=== PATIENT | female | born 1985 | race American Indian/Alaskan Native ===

== ENCOUNTER 2016-05-29 17:16 | Emergency (ER) | payer BC ==
--- NOTE | 2016-05-29 19:28 | Emergency Department Report ---
HPI - General Chief Complaint: Dental/Oral Time Seen by Provider: 05/29/16 19:22 - HPI HPI: The patient is a 31-year-old female who presents to ED complaining of 8/10pain in the left side of his mouth x today . Patient states that the pain started today while at work and has increased in severity over the past 10 hours. The pain is exacerbated by eating and opening of the mouth. Patient states the pain is alleviated initially with pain medication but comes back. Patient states that it radiates towards left ear. Patient describes a as a throbbing, pressure-like sensation. Patient states otherwise well and has no other complaints. Patient has had no fevers and no chills. No chest pain, no shortness of breath. No abdominal pain. No shortness of breath or recent trauma to the face. ED Past Medical Hx - Past Medical History Hx Asthma: Yes - Surgical History Additional Surgical History: 2000 - Social History Smoking Status: Current Every Day Smoker Substance Use Type: None - Medications Home Medications: Home Medications Medication Instructions Recorded Confirmed Last Taken Type metroNIDAZOLE [Flagyl] 500 mg PO Q12H #14 tablet 03/05/14 Unknown Rx Ibuprofen [Motrin 800 MG tab] 800 mg PO Q8H PRN #30 tablet 05/29/16 Unknown Rx Penicillin Vk [Veetids TAB] 250 mg PO QID #28 tablet 05/29/16 Unknown Rx ED Review of Systems ROS: Stated complaint: SEVERE TOOTHACHE/RT LEG PAIN Other details as noted in HPI Constitutional: denies: chills, fever Eyes: denies: eye pain, eye discharge, vision change ENT: dental pain. denies: ear pain, throat pain, hearing loss, epistaxis Respiratory: denies: cough, shortness of breath, wheezing Cardiovascular: denies: chest pain, palpitations Endocrine: no symptoms reported Gastrointestinal: denies: abdominal pain, nausea, diarrhea Genitourinary: denies: urgency, dysuria, discharge Musculoskeletal: denies: back pain, joint swelling, arthralgia Skin: denies: rash, lesions Neurological: denies: headache, weakness, paresthesias Psychiatric: denies: anxiety, depression Hematological/Lymphatic: denies: easy bleeding, easy bruising Physical Exam - Physical Exam Vital Signs: Vital Signs 05/29/16 17:28 Temperature 99.5 F Pulse Rate 94 H Respiratory 18 Rate Blood Pressure 139/74 O2 Sat by Pulse 100 Oximetry Physical Exam: GENERAL: Alert and oriented x3, no apparent distress, Normal Gait, atraumatic. HEAD: Head is normocephalic and a-traumatic. EYES: Extra ocular muscles are intact. Pupils are equal, round, and reactive to light and accommodation. EARS: symetrical, atraumatic, non tender, ear canal clear and moderate cerumen, tympanic membrance non inflamed. gross auditory nml bilaterally. NOSE: Nose symetrical, Nontender,Nares appeared normal. MOUTH:Mouth is well hydrated and without lesions. Tonsils nonerythematous or swollen, Uvula midline, Tongue not elevated. Mucous membranes are moist. Posterior pharynx clear, no exudate or lesions. Patent airways. Right lower jaw Tender to palpation. No fractured or missing tooth. NECK: Supple. Non edematous, No carotid bruits. No lymphadenopathy or thyromegaly. LUNGS: Symetrical with respiration, No wheezing, no rales or crackles, CTAB. HEART: S1, S2 present, regular rate and rhythm without murmur, no rubs, no gallops. ABDOMEN: No organomegaly was noted,Positive bowel sounds, soft, and non- distended. . Nontender to palpation on all Quadrants, NO CVA tenderness. EXTREMITIES/MUSCULOSKELETAL: No cyanosis, clubbing, rash, lesions or edema. Full ROM bilaterally. NEUROLOGIC: No focal Deficit, Cranial nerves II through XII are grossly intact. No loss of sensation, SKIN: Warm and dry, No lesions, No ulceration or induration present. ED Course Vital Signs 05/29/16 17:28 Temperature 99.5 F Pulse Rate 94 H Respiratory 18 Rate Blood Pressure 139/74 O2 Sat by Pulse 100 Oximetry ED Medical Decision Making - Medical Decision Making 31 female presents with dental pain secondary to caries. ED course: Patient received 500 mg of penicillin and and 800 milligrams of Motrin. Vital signs stable. Patient is in no acute or respiratory distress. Discussed the patient follow up with the dentist. Referrals given and told to follow-up. Discharged patient on antibiotics and Motrin for pain. Patient verbally states she understands and will follow up with a dentist. As well as take medications as prescribed. Critical care attestation.: If time is entered above; I have spent that time in minutes in the direct care of this critically ill patient, excluding procedure time. ED Disposition Clinical Impression: Dental caries, Pain due to dental caries Disposition: DISCHARGED TO HOME OR SELFCARE Is pt being admited?: No Does the pt Need Aspirin: No Condition: Stable Instructions: Dental Caries (ED), Toothache (ED) Prescriptions: Ibuprofen [Motrin 800 MG tab] 800 mg PO Q8H PRN #30 tablet PRN Reason: Pain Penicillin Vk [Veetids TAB] 250 mg PO QID #28 tablet Referrals: PRIMARY CARE, [Primary Care Provider] - 3-[address] [facility] [Outside] - 3-5 Days [facility] [Outside] - 3-5 Days [facility] [Outside] - 3-5 Days [facility] [Outside] - 3-5 Days [facility] [Outside] - 3-5 Days [facility] [Outside] - 3-5 Days Forms: Work/School Release Form(ED) Time of Disposition: 20:07
[2016-05-29] MEDS ORDERED: MOTRIN PO ONE (19:45)
[2016-05-29 20:18] VITALS: BP 136/76
== END 2016-05-29 20:16 | disposition home or self-care (01) ==
LOC: ED 17:16
DX: K02.9 Dental caries, unspecified (principal); J45.909 Unspecified asthma, uncomplicated; F17.200 Nicotine dependence, unspecified, uncomplicated; Z88.5 Allergy status to narcotic agent
CPT/HCPCS: 99282

== ENCOUNTER 2017-01-15 22:25 | Emergency (ER) | payer SELFPAY ==
[2017-01-15 22:50] VITALS: BP 122/68
[2017-01-15 23:09] LABS: Eosinophils % (Auto) 1.5 % (0.0-4.3); Hematocrit 31.9 % (30.3-42.9); Mean Corpuscular HGB Conc 31 % (30-34); Platelet Count 320 K/mm3 (140-440); Red Blood Count 5.14 M/mm3 (3.65-5.03); Red Cell Distribution Width 17.4 % (13.2-15.2); White Blood Count 10.9 K/mm3 (4.5-11.0)
[2017-01-15 23:10] LABS: Mean Corpuscular Hemoglobin 19 pg (28-32); Mean Corpuscular Volume 62 fl (79-97)
[2017-01-15 23:31] LABS: Alanine Aminotransferase 29 units/L (7-56); Albumin 3.8 g/dL (3.9-5); Alkaline Phosphatase 126 units/L (35-129); Anion Gap 16 mmol/L; BUN/Creatinine Ratio 13; Blood Urea Nitrogen 9 mg/dL (7-17); Calcium 8.8 mg/dL (8.4-10.2); Carbon Dioxide 22 mmol/L (22-30); Chloride 103.9 mmol/L (98-107); Glucose 87 mg/dL (65-100); Lipase 15 units/L (13-60); Potassium 3.9 mmol/L (3.6-5.0); Sodium 138 mmol/L (137-145); Total Protein 7.7 g/dL (6.3-8.2)
== END 2017-01-16 01:05 | disposition left against medical advice (07) ==
LOC: ED 22:25
DX: R10.30 Lower abdominal pain, unspecified (principal); Z53.21 Procedure and treatment not carried out due to patient leaving prior to being seen by health care provider
CPT/HCPCS: 36415; 80053; 83690; 84703; 85025

== ENCOUNTER 2019-01-05 17:55 | Emergency (ER) | payer SELFPAY ==
[2019-01-05 18:10] VITALS: BP 121/68
--- NOTE | 2019-01-05 18:12 | Emergency Department Report ---
ED N/V/D HPI - General Chief complaint: Abdominal Pain Stated complaint: STOMACH PAIN Source: patient Mode of arrival: Ambulatory Limitations: No Limitations - History of Present Illness Initial comments: 33yo female states that she has nausea and diarrhea after eating take out last night. She states that her abdominal pain is at the bottom of her abdomen. -: Last night Description of Diarrhea: water - Related Data Previous Rx's Medication Instructions Recorded Last Taken Type metroNIDAZOLE [Flagyl] 500 mg PO Q12HR #14 tab 01/31/17 Unknown Rx Allergies Allergy/AdvReac Type Severity Reaction Status Date / Time codeine Allergy Hives Verified 01/05/19 18:08 ED Review of Systems ROS: Stated complaint: STOMACH PAIN Other details as noted in HPI ED Past Medical Hx - Past Medical History Hx Asthma: Yes Additional medical history: PID - Surgical History Past Surgical History?: No Additional Surgical History: 2000 - Social History Smoking Status: Current Every Day Smoker - Medications Home Medications: Home Medications Medication Instructions Recorded Confirmed Last Taken Type metroNIDAZOLE [Flagyl] 500 mg PO Q12HR #14 tab 01/31/17 Unknown Rx ED Physical Exam - General Limitations: No Limitations Critical care attestation.: If time is entered above; I have spent that time in minutes in the direct care of this critically ill patient, excluding procedure time. ED Disposition Condition: Stable Instructions: Abdominal Pain (ED)
[2019-01-05] MEDS ORDERED: DICYCLOMINE 20 MG TAB PO ONE (19:45)
[2019-01-05] MEDS ORDERED: ONDANSETRON 4 MG ODT TAB PO ONE (19:45)
[2019-01-05] MEDS ORDERED: DIPHENOXYLATE/ATROPINE TAB PO ONE (19:45)
[2019-01-05] MEDS ORDERED: FAMOTIDINE 20 MG TAB PO ONE (19:45)
[2019-01-05 19:52] LABS: Bilirubin,Urine NEG (Negative); Blood,Urine MOD (Negative); Color,Urine Yellow (Yellow); Mucus,Urine 1+ /HPF; Protein,Urine <15 mg/dL mg/dL (Negative); Urobilinogen,Urine < 2.0 mg/dL (<2.0)
[2019-01-05 20:09] LABS: Basophils % (Auto) 0.4 % (0.0-1.8); Eosinophils # (Auto) 0.1 K/mm3 (0.0-0.4); Eosinophils % (Auto) 1.1 % (0.0-4.3); Hematocrit 31.8 % (30.3-42.9); Hemoglobin 10.1 gm/dl (10.1-14.3); Lymphocytes # (Auto) 2.2 K/mm3 (1.2-5.4); Mean Corpuscular HGB Conc 32 % (30-34); Monocytes # (Auto) 0.5 K/mm3 (0.0-0.8); Monocytes % (Auto) 5.2 % (0.0-7.3); Platelet Count 274 K/mm3 (140-440); Red Blood Count 5.14 M/mm3 (3.65-5.03); Red Cell Distribution Width 16.7 % (13.2-15.2)
[2019-01-05 20:10] LABS: Mean Corpuscular Volume 62 fl (79-97)
--- NOTE | 2019-01-05 20:58 | Emergency Department Report ---
ED N/V/D HPI - General Chief complaint: Abdominal Pain Stated complaint: STOMACH PAIN Source: patient Mode of arrival: Ambulatory Limitations: No Limitations - History of Present Illness Initial comments: Patient is a 33-year-old -[place] female with no past medical history who presents to the ED with complaint of acute onset persistent intermittent nausea, vomiting, diarrhea and mild diffuse abdominal pain for the last 12 hours after eating [place] food 24 hours ago. Patient denies dizziness, chest pain, shortness of breath, fever, chills, sore throat, cough, dysuria, urinary frequency and urgency or headache. Patient states that is not in so home with similar symptoms. MD complaint: nausea, vomiting, diarrhea, abdominal pain -: Sudden, hour(s) Description of Vomiting: food contents, watery Description of Diarrhea: water Associated Abdominal Pain: Yes (mildly diffuse) Location: diffuse Radiation: none Severity: mild Pain Scale: 2 Quality: aching, dull Consistency: intermittent Improves with: none Worsens with: none Context: possible food poisoning Associated Symptoms: denies other symptoms, loss of appetite, nausea/vomiting. denies: myalgias, chest pain, cough, diaphoresis, fever/chills, headaches, malaise, rash, dysuria, shortness of breath, syncope, weakness - Related Data Previous Rx's Medication Instructions Recorded Last Taken Type metroNIDAZOLE [Flagyl] 500 mg PO Q12HR #14 tab 01/31/17 Unknown Rx Dicyclomine [Bentyl] 20 mg PO Q6H PRN #20 tablet 01/05/19 Unknown Rx Diphenoxylate/Atropine [Lomotil] 1 - 2 tab PO Q4H PRN #12 tablet 01/05/19 Unknown Rx Ondansetron [Zofran Odt] 4 mg PO Q6HR PRN #15 tab.rapdis 01/05/19 Unknown Rx raNITIdine HCl [Zantac] 150 mg PO Q12H #24 tablet 01/05/19 Unknown Rx Allergies Allergy/AdvReac Type Severity Reaction Status Date / Time codeine Allergy Hives Verified 01/05/19 18:08 ED Review of Systems ROS: Stated complaint: STOMACH PAIN Other details as noted in HPI Constitutional: denies: chills, fever Eyes: denies: eye pain, eye discharge, vision change ENT: denies: ear pain, throat pain Respiratory: denies: cough, shortness of breath, wheezing Cardiovascular: denies: chest pain, palpitations Endocrine: no symptoms reported Gastrointestinal: abdominal pain, nausea, vomiting, diarrhea Genitourinary: denies: urgency, dysuria, discharge Musculoskeletal: denies: back pain, joint swelling, arthralgia Skin: denies: rash, lesions Neurological: denies: headache, weakness, paresthesias Psychiatric: denies: anxiety, depression Hematological/Lymphatic: denies: easy bleeding, easy bruising ED Past Medical Hx - Past Medical History Hx Asthma: Yes Additional medical history: PID - Surgical History Past Surgical History?: No Additional Surgical History: 2000 - Social History Smoking Status: Current Every Day Smoker - Medications Home Medications: Home Medications Medication Instructions Recorded Confirmed Last Taken Type metroNIDAZOLE [Flagyl] 500 mg PO Q12HR #14 tab 01/31/17 Unknown Rx Dicyclomine [Bentyl] 20 mg PO Q6H PRN #20 tablet 01/05/19 Unknown Rx Diphenoxylate/Atropine [Lomotil] 1 - 2 tab PO Q4H PRN #12 tablet 01/05/19 Unknown Rx Ondansetron [Zofran Odt] 4 mg PO Q6HR PRN #15 tab.rapdis 01/05/19 Unknown Rx raNITIdine HCl [Zantac] 150 mg PO Q12H #24 tablet 01/05/19 Unknown Rx ED Physical Exam - General Limitations: No Limitations General appearance: alert, in no apparent distress - Head Head exam: Present: atraumatic, normocephalic, normal inspection - Eye Eye exam: Present: normal appearance, PERRL, EOMI Pupils: Present: normal accommodation - ENT ENT exam: Present: normal exam, normal orophraynx, mucous membranes moist, TM's normal bilaterally, normal external ear exam - Neck Neck exam: Present: normal inspection, full ROM - Respiratory Respiratory exam: Present: normal lung sounds bilaterally. Absent: respiratory distress, wheezes, rales, stridor, chest wall tenderness, decreased breath sounds, prolonged expiratory - Cardiovascular Cardiovascular Exam: Present: regular rate, normal rhythm, normal heart sounds. Absent: systolic murmur, diastolic murmur, rubs, gallop - GI/Abdominal GI/Abdominal exam: Present: soft, normal bowel sounds. Absent: tenderness, guarding, rebound - Extremities Exam Extremities exam: Present: normal inspection, full ROM, normal capillary refill - Back Exam Back exam: Present: normal inspection, full ROM. Absent: CVA tenderness (L), muscle spasm, paraspinal tenderness, vertebral tenderness - Neurological Exam Neurological exam: Present: alert, oriented X3, CN II-XII intact, normal gait, reflexes normal - Psychiatric Psychiatric exam: Present: normal affect, normal mood - Skin Skin exam: Present: warm, dry, intact, normal color. Absent: rash ED Course Vital Signs 01/05/19 18:08 Temperature 98.6 F Pulse Rate 96 H Respiratory 18 Rate Blood Pressure 121/68 [Right] O2 Sat by Pulse 100 Oximetry - Reevaluation(s) Reevaluation #1: 01/05/19 21:06 This is a 33-year-old female who presented to the ED with nausea, vomiting, diarrhea and while diffuse abdominal pain after eating at a restaurant. In the ED, patient is alert and oriented 3 and is not in distress with normal vital signs. Patient has not had any nausea or vomiting episodes the last 3 hours but has had 2 episodes of diarrhea. Lab test results were reviewed and are nonactionable. Patient was treated in the ED for nausea, vomiting and diarrhea in the ED. Patient was discharged home on medications and advised to follow-up with her primary care physician in 5-7 days for reevaluation. Patient was advised to maintain a clear liquid diet for 12-24 hours, and to return to the ED immediately if symptoms get worse. ED Medical Decision Making - Lab Data Result diagrams: 01/05/19 19:20 - Medical Decision Making This is a 33-year-old female who presented to the ED with nausea, vomiting, diarrhea and while diffuse abdominal pain after eating at a restaurant. In the ED, patient is alert and oriented 3 and is not in distress with normal vital signs. Patient has not had any nausea or vomiting episodes the last 3 hours but has had 2 episodes of diarrhea. Lab test results were reviewed and are nonactionable. Patient was treated in the ED for nausea, vomiting and diarrhea in the ED. Patient was discharged home on medications and advised to follow-up with her primary care physician in 5-7 days for reevaluation. Patient was advised to maintain a clear liquid diet for 12-24 hours, and to return to the ED immediately if symptoms get worse. - Differential Diagnosis Viral gastroenteritis; nausea, vomiting, diarrhea and abdominal pain Critical care attestation.: If time is entered above; I have spent that time in minutes in the direct care of this critically ill patient, excluding procedure time. ED Disposition Clinical Impression: Nausea, vomiting and diarrhea, Viral gastroenteritis Disposition: TO HOME OR SELFCARE Is pt being admited?: No Does the pt Need Aspirin: No Condition: Stable Instructions: Acute Nausea and Vomiting (ED), Acute Diarrhea (ED), Abdominal Pain (ED) Additional Instructions: Maintain a clear liquid diet for 12-24 hours, take medications, drink plenty of fluids and follow-up with your primary care physician in 5-7 days for reevaluation or return to the ED immediately if symptoms get worse. Prescriptions: Dicyclomine [Bentyl] 20 mg PO Q6H PRN #20 tablet PRN Reason: Pain , Severe (7-10) Diphenoxylate/Atropine [Lomotil] 1 - 2 tab PO Q4H PRN #12 tablet PRN Reason: Diarrhea raNITIdine HCl [Zantac] 150 mg PO Q12H #24 tablet Ondansetron [Zofran Odt] 4 mg PO Q6HR PRN #15 tab.rapdis PRN Reason: Nausea Referrals: PRIMARY CARE,MD [Primary Care Provider] - 3-5 Days Time of Disposition: 20:56 Print Language: UPPER SORBIAN
[2019-01-05 21:10] LABS: Alanine Aminotransferase 13 units/L (7-56); BUN/Creatinine Ratio 9; Blood Urea Nitrogen 6 mg/dL (7-17); Hemolysis Index 1
== END 2019-01-05 21:15 | disposition home or self-care (01) ==
LOC: ED 17:55
DX: A08.4 Viral intestinal infection, unspecified (principal); J45.909 Unspecified asthma, uncomplicated; F17.200 Nicotine dependence, unspecified, uncomplicated; Z88.5 Allergy status to narcotic agent
CPT/HCPCS: 36415; 80053; 81001; 83690; 84703; 85025; Q0162

== ENCOUNTER 2020-01-29 15:06 | Emergency (ER) | payer SELFPAY ==
--- NOTE | 2020-01-29 15:10 | Emergency Department Report ---
Blank Doc - Documentation Documentation: 34-year-old female that presents with RLQ abdominal pain with n/v. This initial assessment/diagnostic orders/clinical plan/treatment(s) is/are subject to change based on patient's health status, clinical progression and re- assessment by fellow clinical providers in the ED. Further treatment and workup at subsequent clinical providers discretion. Patient/guardians urged not to elope from the ED as their condition may be serious if not clinically assessed and managed. Initial orders include: 1- Patient sent to [facility] for further evaluation and treatment 2- labs 3- UA
[2020-01-29 15:50] LABS: Alanine Aminotransferase 17 units/L (7-56); Albumin 3.8 g/dL (3.9-5); BUN/Creatinine Ratio 11; Blood Urea Nitrogen 9 mg/dL (7-17); Hemolysis Index 2
[2020-01-29 16:25] LABS: Basophils % (Auto) 0.4 % (0.0-1.8); Eosinophils # (Auto) 0.1 K/mm3 (0.0-0.4); Eosinophils % (Auto) 1.6 % (0.0-4.3); Hematocrit 31.1 % (30.3-42.9); Hemoglobin 9.9 gm/dl (10.1-14.3); Lymphocytes # (Auto) 2.1 K/mm3 (1.2-5.4); Lymphocytes % (Auto) 25.7 % (13.4-35.0); Mean Corpuscular HGB Conc 32 % (30-34); Monocytes # (Auto) 0.6 K/mm3 (0.0-0.8); Monocytes % (Auto) 6.8 % (0.0-7.3); Platelet Count 323 K/mm3 (140-440); Red Blood Count 4.92 M/mm3 (3.65-5.03); Red Cell Distribution Width 17.3 % (13.2-15.2)
[2020-01-29 16:26] LABS: Mean Corpuscular Volume 63 fl (79-97)
[2020-01-29 17:01] LABS: Bilirubin,Urine NEG (Negative); Blood,Urine LG (Negative); Color,Urine Yellow (Yellow); Mucus,Urine FEW /HPF; Urobilinogen,Urine < 2.0 mg/dL (<2.0)
[2020-01-29] MEDS ORDERED: KETOROLAC 60 MG/2 ML INJ IM ONE (17:03)
[2020-01-29 17:04] LABS: RBC,Urine > 182.0 /HPF (0.0-6.0)
--- NOTE | 2020-01-29 17:52 | Emergency Department Report ---
ED Female HPI - General Chief complaint: Abdominal Pain Stated complaint: LOW ABDOMINAL PAIN Time Seen by Provider: 01/29/20 15:10 Source: patient Mode of arrival: Ambulatory Limitations: No Limitations - History of Present Illness Initial comments: Patient is a 34-year-old female presents emergency room with complaints of lower abdominal pain that began this morning. She states that she began her menstrual cycle 3 days ago. She states that she has been having normal bowel movements. She denies any nausea, vomiting, diarrhea, fever, dysuria, vaginal discharge or irritation. She states that she ate Chick-radha-A today without any issues and wa s able to tolerate p.o. intake. She has a past medical history of anemia. She has an allergy to codeine. - Related Data Previous Rx's Medication Instructions Recorded Last Taken Type Dicyclomine [Bentyl] 20 mg PO Q6H PRN #20 tablet 01/05/19 Unknown Rx Diphenoxylate/Atropine [Lomotil] 1 - 2 tab PO Q4H PRN #12 tablet 01/05/19 Unknown Rx Ondansetron [Zofran Odt] 4 mg PO Q6HR PRN #15 tab.rapdis 01/05/19 Unknown Rx raNITIdine HCl [Zantac] 150 mg PO Q12H #24 tablet 01/05/19 Unknown Rx metroNIDAZOLE [Flagyl TAB] 500 mg PO Q12HR #14 tab 04/30/19 Unknown Rx Ketorolac [Toradol] 10 mg PO Q8HR PRN #10 tablet 01/29/20 Unknown Rx Allergies Allergy/AdvReac Type Severity Reaction Status Date / Time codeine Allergy Hives Verified 01/05/19 18:08 ED Review of Systems ROS: Stated complaint: LOW ABDOMINAL PAIN Other details as noted in HPI Comment: All other systems reviewed and negative ED Past Medical Hx - Past Medical History Previous Medical History?: Yes Hx Asthma: Yes Additional medical history: PID - Surgical History Past Surgical History?: Yes Additional Surgical History: 2001 - Social History Smoking Status: Never Smoker Substance Use Type: None - Medications Home Medications: Home Medications Medication Instructions Recorded Confirmed Last Taken Type Dicyclomine [Bentyl] 20 mg PO Q6H PRN #20 tablet 01/05/19 Unknown Rx Diphenoxylate/Atropine [Lomotil] 1 - 2 tab PO Q4H PRN #12 tablet 01/05/19 Unknown Rx Ondansetron [Zofran Odt] 4 mg PO Q6HR PRN #15 tab.rapdis 01/05/19 Unknown Rx raNITIdine HCl [Zantac] 150 mg PO Q12H #24 tablet 01/05/19 Unknown Rx metroNIDAZOLE [Flagyl TAB] 500 mg PO Q12HR #14 tab 04/30/19 Unknown Rx Ketorolac [Toradol] 10 mg PO Q8HR PRN #10 tablet 01/29/20 Unknown Rx ED Physical Exam - General Limitations: No Limitations General appearance: alert, in no apparent distress - Head Head exam: Present: atraumatic, normocephalic - Eye Eye exam: Present: normal appearance - ENT ENT exam: Present: mucous membranes moist - Respiratory Respiratory exam: Present: normal lung sounds bilaterally. Absent: respiratory distress, wheezes, rales, rhonchi, stridor, chest wall tenderness, accessory muscle use, decreased breath sounds, prolonged expiratory - Cardiovascular Cardiovascular Exam: Present: regular rate, normal rhythm, normal heart sounds. Absent: systolic murmur, diastolic murmur, rubs, gallop - GI/Abdominal GI/Abdominal exam: Present: soft, tenderness (mild suprapubic), normal bowel sounds, other (negative murphys sign, negative mcburneys point ttp, negative neal turners or cullens sign). Absent: distended, guarding, rebound, rigid - Neurological Exam Neurological exam: Present: alert, oriented X3 - Psychiatric Psychiatric exam: Present: normal affect, normal mood - Skin Skin exam: Present: warm, dry, intact ED Course Vital Signs 01/29/20 01/29/20 15:11 18:06 Temperature 98.1 F 98.2 F Pulse Rate 91 H 61 Respiratory 19 18 Rate Blood Pressure 126/69 Blood Pressure 136/58 112/64 [Right] O2 Sat by Pulse 100 100 Oximetry ED Medical Decision Making - Lab Data Result diagrams: 01/29/20 15:14 01/29/20 15:14 Lab Results 01/29/20 01/29/20 01/29/20 Range/Units 15:14 15:14 15:14 WBC 8.2 (4.5-11.0) K/mm3 RBC 4.92 (3.65-5.03) M/mm3 Hgb 9.9 L (10.1-14.3) gm/dl Hct 31.1 (30.3-42.9) % MCV 63 L (79-97) fl MCH 20 L (28-32) pg MCHC 32 (30-34) % RDW 17.3 H (13.2-15.2) % Plt Count 323 (140-440) K/mm3 Lymph % (Auto) 25.7 (13.4-35.0) % Mcculloch % (Auto) 6.8 (0.0-7.3) % Eos % (Auto) 1.6 (0.0-4.3) % Baso % (Auto) 0.4 (0.0-1.8) % Lymph # (Auto) 2.1 (1.2-5.4) K/mm3 Mcculloch # (Auto) 0.6 (0.0-0.8) K/mm3 Eos # (Auto) 0.1 (0.0-0.4) K/mm3 Baso # (Auto) 0.0 (0.0-0.1) K/mm3 Seg Neutrophils % 65.5 (40.0-70.0) % Seg Neutrophils # 5.4 (1.8-7.7) K/mm3 Sodium 137 (137-145) mmol/L Potassium 3.9 (3.6-5.0) mmol/L Chloride 102.1 (98-107) mmol/L Carbon Dioxide 22 (22-30) mmol/L Anion Gap 17 mmol/L BUN 9 (7-17) mg/dL Creatinine 0.8 (0.6-1.2) mg/dL Estimated GFR > 60 ml/min BUN/Creatinine Ratio 11 % Glucose 83 (65-100) mg/dL Calcium 9.0 (8.4-10.2) mg/dL Total Bilirubin 0.50 (0.1-1.2) mg/dL AST 21 (5-40) units/L ALT 17 (7-56) units/L Alkaline Phosphatase 129 (35-129) units/L Total Protein 7.7 (6.3-8.2) g/dL Albumin 3.8 L (3.9-5) g/dL Albumin/Globulin Ratio 1.0 % Lipase 15 (13-60) units/L HCG, Qual Negative (Negative) Urine Color (Yellow) Urine Turbidity (Clear) Urine pH (5.0-7.0) Ur Specific Uriah (1.003-1.030) Urine Protein (Negative) mg/dL Urine Glucose (UA) (Negative) mg/dL Urine Ketones (Negative) mg/dL Urine Blood (Negative) Urine Nitrite (Negative) Urine Bilirubin (Negative) Urine Urobilinogen (<2.0) mg/dL Ur Leukocyte Esterase (Negative) Urine WBC (Auto) (0.0-6.0) /HPF Urine RBC (Auto) (0.0-6.0) /HPF U Epithel Cells (Auto) (0-13.0) /HPF Urine Mucus /HPF 01/29/20 Range/Units Unknown WBC (4.5-11.0) K/mm3 RBC (3.65-5.03) M/mm3 Hgb (10.1-14.3) gm/dl Hct (30.3-42.9) % MCV (79-97) fl MCH (28-32) pg MCHC (30-34) % RDW (13.2-15.2) % Plt Count (140-440) K/mm3 Lymph % (Auto) (13.4-35.0) % Mcculloch % (Auto) (0.0-7.3) % Eos % (Auto) (0.0-4.3) % Baso % (Auto) (0.0-1.8) % Lymph # (Auto) (1.2-5.4) K/mm3 Mcculloch # (Auto) (0.0-0.8) K/mm3 Eos # (Auto) (0.0-0.4) K/mm3 Baso # (Auto) (0.0-0.1) K/mm3 Seg Neutrophils % (40.0-70.0) % Seg Neutrophils # (1.8-7.7) K/mm3 Sodium (137-145) mmol/L Potassium (3.6-5.0) mmol/L Chloride (98-107) mmol/L Carbon Dioxide (22-30) mmol/L Anion Gap mmol/L BUN (7-17) mg/dL Creatinine (0.6-1.2) mg/dL Estimated GFR ml/min BUN/Creatinine Ratio % Glucose (65-100) mg/dL Calcium (8.4-10.2) mg/dL Total Bilirubin (0.1-1.2) mg/dL AST (5-40) units/L ALT (7-56) units/L Alkaline Phosphatase (35-129) units/L Total Protein (6.3-8.2) g/dL Albumin (3.9-5) g/dL Albumin/Globulin Ratio % Lipase (13-60) units/L HCG, Qual (Negative) Urine Color Yellow (Yellow) Urine Turbidity Slightly-cloudy (Clear) Urine pH 8.0 H (5.0-7.0) Ur Specific Uriah 1.020 (1.003-1.030) Urine Protein 30 mg/dl (Negative) mg/dL Urine Glucose (UA) Neg (Negative) mg/dL Urine Ketones Neg (Negative) mg/dL Urine Blood Lg (Negative) Urine Nitrite Neg (Negative) Urine Bilirubin Neg (Negative) Urine Urobilinogen < 2.0 (<2.0) mg/dL Ur Leukocyte Esterase Neg (Negative) Urine WBC (Auto) 3.0 (0.0-6.0) /HPF Urine RBC (Auto) > 182.0 (0.0-6.0) /HPF U Epithel Cells (Auto) 15.0 H (0-13.0) /HPF Urine Mucus Few /HPF Vital Signs 01/29/20 01/29/20 15:11 18:06 Temperature 98.1 F 98.2 F Pulse Rate 91 H 61 Respiratory 19 18 Rate Blood Pressure 126/69 Blood Pressure 136/58 112/64 [Right] O2 Sat by Pulse 100 100 Oximetry - Medical Decision Making Patient is a 34-year-old female presents emergency room with complaints of lower abdominal pain that began this morning. She states that she began her menstrual cycle 3 days ago. She states that she has been having normal bowel movements. She denies any nausea, vomiting, diarrhea, fever, dysuria, vaginal discharge or irritation. She states that she ate Chick-radha-[employer] today without any issues and was able to tolerate p.o. intake. She has a past medical history of anemia. She has an allergy to codeine. Vitals are stable. On exam abdomen is soft, nondistended, mild suprapubic abdominal tenderness palpation, negative Bautista sign, negative McBurney's point tenderness, negative Neal Roy's and [place] sign, normal bowel sounds. Labs are normal. hCG is negative. UA without evidence of UTI. Patient given Toradol IM and symptoms completely improved and she was feeling much better ready go home. Patient will be referred to [facility] for further evaluation. appears she is presenting with dysmenorrhea. No significant abdominal tenderness on exam, no leukocytosis, no fever, abdomen is soft, nondistended, no rigidity, no peritoneal signs, normal bowel sounds. discussed the importance of follow-up with patient. Discussed strict return precautions. Patient given prescription for Toradol. Advised patient Please take medication as prescribed as needed. Increase your water intake. Follow-up with [facility]. Return to the emergency room immediately for any new or worsening symptoms including but not limited to worsening pain, vomiting, unable to tolerate by mouth intake, fever, chills, etc. - Differential Diagnosis Dysmenorrhea, fibroids, adenomyosis, endometriosis, ovarian cyst, UTI Critical care attestation.: If time is entered above; I have spent that time in minutes in the direct care o f this critically ill patient, excluding procedure time. ED Disposition Clinical Impression: Dysmenorrhea Disposition: - TO HOME OR SELFCARE Is pt being admited?: No Does the pt Need Aspirin: No Condition: Stable Instructions: Dysmenorrhea (ED), Abdominal Pain (ED) Additional Instructions: Please take medication as prescribed as needed. Increase your water intake. Follow-up with [facility]. Return to the emergency room immediately for any new or worsening symptoms including but not limited to worsening pain, vomiting, unable to tolerate by mouth intake, fever, chills, etc. Prescriptions: Ketorolac [Toradol] 10 mg PO Q8HR PRN #10 tablet PRN Reason: Pain Referrals: [facility] [Provider Group] - 2-3 Days [facility] [Provider Group] - 2-3 Days [facility] [Provider Group] - 2-3 Days [facility] [Provider Group] - 2-3 Days Time of Disposition: 17:50 Print Language: MOHAWK
[2020-01-29 18:06] VITALS: BP 112/64
== END 2020-01-29 18:15 | disposition home or self-care (01) ==
LOC: ED 15:06
DX: N94.6 Dysmenorrhea, unspecified (principal); J45.909 Unspecified asthma, uncomplicated; Z79.899 Other long term (current) drug therapy; Z88.6 Allergy status to analgesic agent; Z98.890 Other specified postprocedural states
CPT/HCPCS: 36415; 80053; 81001; 83690; 84703; 85025; 96372; 99283; J1885